=== PATIENT | female | born 1995 | race Caucasian/White ===

== ENCOUNTER 2021-06-05 23:46 | Emergency (ER) | payer OTHER, SELFPAY ==
--- NOTE | 2021-06-05 00:08 | RAD_ITS ---
INDICATION: pain EXAMINATION/TECHNIQUE: X-RAY - RIGHT XR Hand Min 3 Views 3 VIEWS COMPARISON: None. FINDINGS: SOFT TISSUES: No soft tissue swelling or gas. No radiopaque foreign body. BONES/JOINTS: No acute fracture or subluxation.. Normal alignment. Preservation of the joint space.. No sclerotic or destructive changes observed. RAD/Hand Min 3 Views IMPRESSION: Negative. Electronically Signed: Anderson Cohen DO at 0:55 EDT Tel , Service support ,
[2021-06-05 23:47] VITALS: BP 134/84; PULSE 106; RESP 15; TEMP 36.4; O2SAT 100; BMI 23.0
--- NOTE | 2021-06-06 01:00 | EDS_ITS ---
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 Hurts into her wrist but she can move that. She denies any other injuries. She states she is concerned enough that she would like to talk to a counselor and stay in the emergency department overnight tonight because she fears she will not be safe if she goes home by herself, she does not want to go back to the hotel and see any of the other people in the wedding tonight. She denies any illicit drug use. 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 [facility] Medical History (Updated 06/06/21 @ 01:42 by Delicia Vazquez) Depression Ovarian cyst Home Medications naproxen 500 mg PO BID 06/06/21 [History Last Taken Unknown] Allergy/AdvReac Type Severity Reaction Status Date / Time Penicillins [PCN] Allergy Hives Verified 06/05/21 23:47 Sulfa (Sulfonamide Allergy Hives Verified 06/05/21 23:47 Antibiotics) Social History (Updated 06/06/21 @ 01:[address] Kana Gamez MD) Smoking Status: Never smoker alcohol intake: current alcohol intake frequency: holidays/special occasions only ROS ROS ED Constitutional Constitutional ED: Denies chills or fever(s) Eyes Eyes: Denies change in vision or diplopia ENT ENT ED: Denies rhinorrhea or sore throat Cardiovascular Cardiovascular: Denies chest pain or palpitations Respiratory/Chest Respiratory/Chest: Denies cough or dyspnea Gastrointestinal Gastrointestinal: Denies abdominal pain, diarrhea, nausea or vomiting Genitourinary Genitourinary ED: Denies dysuria or hematuria Musculoskeletal Musculoskeletal: Reports as per HPI and extremity pain; Denies back pain or neck pain Integumentary Reports Abrasions; Denies abscess or rash Neurologic Neurologic: Denies headache(s), paresthesias or weakness EXAM Physical Exam Const Vital Signs: 06/05/21 23:47 Temperature 97.6 F L Temperature Source Temporal Pulse Rate 106 H Respiratory Rate 15 Blood Pressure 134/84 H Blood Pressure Mean 100 Pulse Ox 100 Oxygen Delivery Method Room Air Positive well nourished and well developed General Appearance ED: well developed and NAD HEENT Reports moist mucous membranes normocephalic and atraumatic Eyes PERRL and EOMs intact bilaterally Neck full ROM and supple Resp normal respiratory effort and clear to auscultation bilaterally Cardio regular rate, regular rhythm and no murmurs GI non-tender and non-distended Auscultation: normoactive bowel sounds Palpation: soft Back/Spine no CVA tenderness General Back: other FROM Extremity Extremity Narrative: Bony tenderness mainly where there are dorsal abrasions at the right distal fourth and fifth metacarpals although she has diffuse tenderness throughout the entire hand. She has no bony tenderness in the wrist, she is able to range the wrist, it makes her hand hurt. Nontender elbow and shoulder. No lacerations. General Extremety ED: Yes tenderness; Negative for edema or pulses abnormal General Extremity: Negative for edema or pulses abnormal Neuro oriented x3, CN's II-XII intact bilaterally and no sensory deficits noted Sensorium / Orientation: awake and alert Motor Exam: strength 5/5 throughout Psych thought process normal, cooperative and speech normal Mood & Affect: depressed, tearful and labile affect Skin no rashes or lesions noted and no wounds Skin Narrative: Abrasions to right hand MDM MDM MDM Narrative Medical decision making narrative: Patient had x-ray mitral rotation 3 views show no acute fractures. She does not have any rotational deformity clinically. She is able to range her fingers although it hurts. She was given ibuprofen for that as well as an ice pack and an García wrap at her request. Observed her overnight at her request, and she will be reevaluated in the morning. In the meantime will obtain alcohol level and a urine drug screen to screen her for crisis in the a.m. Urine drug screen negative. Patient did not want her blood drawn. She was allowed to be observed, and the mother of the patient's best friend who was the bride at the wedding [employer], did come and spend a couple hours with the patient. The patient changed her mind as she sobered up over the 3-hour ED observation., She is feeling much better, she would like to go back to the hotel with her friend's mother, and her friend's mother states she will stay with her she will not be alone, and she will help to maintain her safety. The patient is feeling safer now that she is with her, and would not like to wait until she can see a counselor, she verbally contracts for safety. She lives in the [facility], she is amenable to following up with a counselor. Lab Data Attestation: I reviewed the patient's lab results. Labs: Laboratory Results - last 24 hr 06/06/21 00:30 Ur Drug Screen Comment Radiography Diagnostic Testing: Clinical Impression(s) from Imaging Studies Hand X-Ray 06/05/21 00:08 IMPRESSION: Negative. Electronically Signed: Anderson Cohen DO at 0:55 EDT Tel , Service support , Discharge Plan Triage Chief Complaint: Upper Extremity Injury ED Provider: Kana Gamez Dx/Rx/DC Orders Clinical Impression: Suicidal thoughts, Alcohol intoxication, Contusion of right hand Instructions: CONTRACT, No Harm, ED Depression Prescriptions: No Action naproxen 500 mg Tablet 500 mg PO BID RF: 0 Referrals: [facility] [Other] Counseling,Center [GROUP OF PHYSICIANS] - (Or your own psychologist of choice when able) Disposition Disposition: Home, Self Care
[2021-06-06 01:17] LABS: Amphetamine Urine VISTA NEGATIVE (<1000 ng/mL); Barbiturate Urine VISTA NEGATIVE (< 200 ng/mL); Benzodiazepine Urine VISTA NEGATIVE (< 200 ng/mL); Cocaine Urine VISTA NEGATIVE (< 300 ng/mL); Ecstacy Urine VISTA NEGATIVE (< 500 ng/mL); Methadone Urine VISTA NEGATIVE (< 300 ng/mL); PCP Urine VISTA NEGATIVE (< 25 ng/mL); THC Urine VISTA NEGATIVE (< 50 ng/mL); Vista UDS pH Range 5
--- NOTE | 2021-06-06 01:34 | ED.RN ---
pt refusing blood work. dr borges made aware
[2021-06-06] MEDS: Ibuprofen 600 MG Tablet PO (01:37)
[2021-06-06 02:51] VITALS: BP 129/77; PULSE 62; RESP 15; O2SAT 98
== END 2021-06-06 02:52 | disposition home or self-care (01) ==
PROVIDERS: Emergency Provider Emergency Medicine
DX: R45.851 Suicidal ideations (principal); F10.129 Alcohol abuse with intoxication, unspecified; S60.221A Contusion of right hand, initial encounter; F32.A Depression, unspecified; X58.XXXA Exposure to other specified factors, initial encounter; Z79.899 Other long term (current) drug therapy
CPT/HCPCS: 73130; 80307; 99282